=== PATIENT | female | born 1985 | race Caucasian/White ===

== ENCOUNTER → 2020-10-03 | Day surgery (SDC) | payer OTHER ==
[~2020-10-03] VITALS: Ht 172.7 cm; Wt 87.5 kg
[~2020-10-03] MED LIST: CELEXA10 MG PO; CURCUMIN1 GM PO; IBUPROFEN800 M1 PO; IBUPROFEN800 MG PO; LOVAZA1 GM PO; PERCOCET 5-3251 EACH PO; SYNTHROID25 MCG PO; WELLBUTRIN SR150 MG PO
[2020-10-03 11:32] LABS: HCG (URINE) SCREEN NEGATIVE (NEGATIVE)
== END | disposition home or self-care (01) ==
LOC: FAS 10:17
PROVIDERS: Obstetrics & Gynecology
DX: N75.1 Abscess of Bartholin's gland (principal); E03.9 Hypothyroidism, unspecified; F32.9 Major depressive disorder, single episode, unspecified; F41.9 Anxiety disorder, unspecified; E78.00 Pure hypercholesterolemia, unspecified; J30.9 Allergic rhinitis, unspecified; Z79.899 Other long term (current) drug therapy; Z88.5 Allergy status to narcotic agent; Z20.822 Contact with and (suspected) exposure to COVID-19; Z90.89 Acquired absence of other organs
CPT/HCPCS: 84703; J1100; J1885; J2250; J2405; J2704; J3010; J7050; J7120; U0002